=== PATIENT | female | born 1975 | race Two or more races ===

== ENCOUNTER 2017-04-28 15:13 | Observation (INO) | payer SELFPAY ==
[2017-04-28] MEDS ORDERED: NS 1,000 ML IV ONE (16:27)
[2017-04-28] MEDS ORDERED: ONDANSETRON 4 MG/2 ML VIAL IVP ONE (16:27)
[2017-04-28] MEDS ORDERED: KETOROLAC 30 MG/1 ML SDV IVP ONE (16:27)
[2017-04-28] MEDS ORDERED: HYDROmorphONE/DILAUDID 1 MG/ML INJ IVP ONE (16:27)
--- NOTE | 2017-04-28 16:33 | EDPHY ---
H & P Stated Complaint: Abd pain since this morning Time Seen by Provider: 04/28/17 16:04 - Personal History LMP (Females 10-55): IUD In Place Current Tetanus Diphtheria and Acellular Pertussis (TDAP): Unsure - Medical/Surgical History Other PMH: neg by hx - Social History Smoking Status: Never smoked Constitutional: Initial Vital Signs Temperature (C) 36.5 C 04/28/17 15:18 Heart Rate 83 04/28/17 15:18 Respiratory Rate 18 04/28/17 15:18 Blood Pressure 138/69 H 04/28/17 15:18 O2 Sat (%) 92 04/28/17 15:18 O2 Delivery Mode Room Air Allergies/Adverse Reactions: No Known Allergies Allergy (Unverified 04/28/17 15:18) Home Medications: Medication Instructions Recorded NK [No Known Home Meds] 04/28/17 Medical Decision Making - Diagnostics Imaging Results: Imaging Impressions Abdomen Ultrasound 04/28/17 16:29 Impression: 1. Cholelithiasis with multiple gallstones up to 2 cm, gallbladder wall thickening, consistent with acute cholecystitis. 2. Dilated common bile duct at 8 mm. 3. Hepatic steatosis with limited evaluation. Findings and recommendations discussed with Emergency Department physician, Ismael Fatima MD at 17:33 hour, 04/28/2017. Final report concurs with initial preliminary interpretation. Imaging: Discussed imaging studies w/ call center dispatcher Radiologist ED Course/Re-evaluation: CHIEF COMPLAINT: Abdominal pain HISTORY OF PRESENT ILLNESS: The patient is a Mongolian-speaking 41 y/o female arriving with her family complaining of abdominal pain onset around 14:30 this afternoon, about 2 hours ago. Her PCP referred her to the ED for evaluation. The pain was constant and severe for about an sxiz-wbo-s-half, but is now more intermittent and dull and primarily located around her central abdomen. It did not seem to coincide with eating. She's had associated diaphoresis, hyperventilation, and bilateral hand tingling. No recent illness, fever, diarrhea, or other complaints. She has never had this pain previously. She has a history of a prior , but no other abdominal surgeries. Last PO intake this morning. History obtained via per diem interpreter. REVIEW OF SYSTEMS: A 10 point review of systems was performed and is negative with the exception of the elements mentioned in the history of present illness. PHYSICAL EXAM: General Appearance: Alert, well hydrated, appropriate, and non-toxic appearing. Head: Atraumatic without scalp tenderness or obvious injury Eyes: Pupils equal, round, reactive to light and accommodation, EOMI, no trauma , no injection. Nose: Atraumatic, no rhinorrhea, clear. Throat: Mucus membranes moist. Neck: Supple, non-tender, no lymphadenopathy. Respiratory: No retractions, no distress, no wheezes, and no accessory muscle use. Lungs are clear to auscultation bilaterally. Cardiovascular: Regular rate and rhythm, no murmurs, rubs, or gallops. Good capillary refill all extremities. Gastrointestinal: Abdomen is soft, RUQ tenderness with positive Camargo's sign, non-distended, no masses, no rebound, no guarding, no peritoneal signs. Musculoskeletal: Normal active ROM of all extremities, atraumatic. Neurological: Alert, appropriate, and interactive. The patient has non-focal cranial nerves, motor, sensory, and cerebellar exam. Skin: No rashes, good turgor, no nodules on palpation. PAST MEDICAL HISTORY: Denies PAST SURGICAL HISTORY: SOCIAL HISTORY: Mongolian-speaking, family at bedside. DIAGNOSTICS/PROCEDURES/CRITICAL CARE TIME: Abdominal US: acute cholecystitis DIFFERENTIAL DIAGNOSIS: The differential diagnosis for the patient's abdominal pain included but was not limited to ovarian cyst, pelvic inflammatory disease, ovarian torsion, urinary tract infection, ectopic , cholecystitis, and appendicitis. MEDICAL DECISION MAKING: This is a 41 y/o female with no known medical history who presents with a 2- hour history of RUQ pain. She has a positive Camargo's sign and RUQ tenderness on exam, but is generally well-appearing. Plan for IV, labs, abdominal US, and symptom management. 1L IV NS, 30mg IV Toradol, 4mg IV Zofran, and 1mg IV Dilaudid administered. LFTs are elevated. Hepatitis panel added. US shows acute cholecystitis. Consulted with Dr. Marrufo, surgeon. He will assess patient in the ED. - Data Points Laboratory Results: Laboratory Results 04/28/17 16:04 04/28/17 16:04 04/28/17 04/28/17 04/28/17 Unknown 16:04 16:04 WBC RBC Hgb Hct MCV MCH MCHC RDW Plt Count MPV Neut % (Auto) Lymph % (Auto) [place] % (Auto) Eos % (Auto) Baso % (Auto) Nucleat RBC Rel Count Absolute Neuts (auto) Absolute Lymphs (auto) Absolute Monos (auto) Absolute Eos (auto) Absolute Basos (auto) Absolute Nucleated RBC Immature Gran % Immature Gran # Sodium 141 mEq/L mEq/L (134-144) Potassium 4.1 mEq/L mEq/L (3.5-5.2) Chloride 101 mEq/L mEq/L (97-110) Carbon Dioxide 25 mEq/l mEq/l (22-31) Anion Gap 15 mEq/L mEq/L (8-16) BUN 12 mg/dL mg/dL (7-23) Creatinine 0.7 mg/dL mg/dL (0.6-1.0) Estimated GFR > 60 Glucose 144 mg/dL H mg/dL (70-100) Calcium 9.6 mg/dL mg/dL (8.5-10.4) Total Bilirubin 1.1 mg/dL mg/dL (0.1-1.4) Conjugated Bilirubin 0.6 mg/dL H mg/dL (0.0-0.5) Unconjugated Bilirubin 0.5 mg/dL mg/dL (0.0-1.1) AST 300 IU/L H IU/L (14-46) ALT 185 IU/L H IU/L (9-52) Alkaline Phosphatase 94 IU/L IU/L (38-126) Total Protein 7.5 g/dL g/dL (6.3-8.2) Albumin 4.4 g/dL g/dL (3.5-5.0) Lipase 171 IU/L IU/L (23-300) Beta HCG, Qual NEGATIVE Hepatitis A IgM Ab Pending Hep Bs Antigen Pending Hep B Core IgM Ab Pending Hepatitis C Antibody Pending 04/28/17 16:04 WBC 13.72 10^3/uL H 10^3/uL (3.80-9.50) RBC 4.78 10^6/uL 10^6/uL (4.18-5.33) Hgb 15.9 g/dL g/dL (12.6-16.3) Hct 44.9 % % (38.0-47.0) MCV 93.9 fL fL (81.5-99.8) MCH 33.3 pg pg (27.9-34.1) MCHC 35.4 g/dL g/dL (32.4-36.7) RDW 13.0 % % (11.5-15.2) Plt Count 250 10^3/uL 10^3/uL (150-400) MPV 11.0 fL fL (8.7-11.7) Neut % (Auto) 74.7 % H % (39.3-74.2) Lymph % (Auto) 17.9 % % (15.0-45.0) [place] % (Auto) 6.0 % % (4.5-13.0) Eos % (Auto) 0.6 % % (0.6-7.6) Baso % (Auto) 0.4 % % (0.3-1.7) Nucleat RBC Rel Count 0.0 % % (0.0-0.2) Absolute Neuts (auto) 10.26 10^3/uL H 10^3/uL (1.70-6.50) Absolute Lymphs (auto) 2.45 10^3/uL 10^3/uL (1.00-3.00) Absolute Monos (auto) 0.82 10^3/uL H 10^3/uL (0.30-0.80) Absolute Eos (auto) 0.08 10^3/uL 10^3/uL (0.03-0.40) Absolute Basos (auto) 0.05 10^3/uL 10^3/uL (0.02-0.10) Absolute Nucleated RBC 0.00 10^3/uL 10^3/uL (0-0.01) Immature Gran % 0.4 % % (0.0-1.1) Immature Gran # 0.06 10^3/uL 10^3/uL (0.00-0.10) Sodium Potassium Chloride Carbon Dioxide Anion Gap BUN Creatinine Estimated GFR Glucose Calcium Total Bilirubin Conjugated Bilirubin Unconjugated Bilirubin AST ALT Alkaline Phosphatase Total Protein Albumin Lipase Beta HCG, Qual Hepatitis A IgM Ab Hep Bs Antigen Hep B Core IgM Ab Hepatitis C Antibody Medications Given: Discontinued Medications Hydromorphone HCl (Dilaudid) 1 mg IVP EDNOW ONE Stop: 04/28/17 16:28 Last Admin: 04/28/17 16:36 Dose: 1 mg Sodium Chloride (Ns) 1,000 mls @ 0 mls/hr IV EDNOW ONE; Wide Open PRN Reason: Protocol Stop: 04/28/17 16:28 Last Admin: 04/28/17 16:37 Dose: 1,000 mls Ketorolac Tromethamine (Toradol) 30 mg IVP EDNOW ONE Stop: 04/28/17 16:28 Last Admin: 04/28/17 16:38 Dose: 30 mg Ondansetron HCl (Zofran) 4 mg IVP EDNOW ONE Stop: 04/28/17 16:28 Last Admin: 04/28/17 16:37 Dose: 4 mg Departure - Departure Disposition: [facility] Acute Clinical Impression: Acute cholecystitis Condition: Fair
[2017-04-28 16:37] LABS: % IMMATURE GRANULYOCYTES 0.4 % (0.0-1.1); ABSOLUTE IMMATURE GRANULOCYTES 0.06 10^3/uL (0.00-0.10); ADD DIFF? NO; ADD MORPH? NO; ADD SCAN? NO; ATYPICAL LYMPHOCYTE FLAG 0 (0-99); FRAGMENT RBC FLAG 0 (0-99); HEMATOCRIT 44.9 % (38.0-47.0); HEMOGLOBIN 15.9 g/dL (12.6-16.3); LEFT SHIFT FLG 0 (0-99); LIPEMIA HEMOLYSIS FLAG 90 (0-99); MEAN CELL HEMOGLOBIN 33.3 pg (27.9-34.1); MEAN CELL HEMOGLOBIN CONCENTR. 35.4 g/dL (32.4-36.7); MEAN CELL VOLUME 93.9 fL (81.5-99.8); PLATELET CLUMPS FLAG 0 (0-99); PLATELET COUNT 250 10^3/uL (150-400); RED BLOOD CELL COUNT 4.78 10^6/uL (4.18-5.33)
[2017-04-28 16:48] LABS: ALANINE AMINOTRANSFERASE 185 IU/L (9-52); ALBUMIN 4.4 g/dL (3.5-5.0); ALKALINE PHOSPHATASE 94 IU/L (38-126); ANION GAP 15 mEq/L (8-16); ASPARTATE AMINOTRANSFERASE 300 IU/L (14-46); BILIRUBIN,TOTAL 1.1 mg/dL (0.1-1.4); BILIRUBIN-CONJUGATED 0.6 mg/dL (0.0-0.5); BILIRUBIN-UNCONJUGATED 0.5 mg/dL (0.0-1.1); CALCIUM 9.6 mg/dL (8.5-10.4); CARBON DIOXIDE 25 mEq/l (22-31); CHLORIDE 101 mEq/L (97-110); CREATININE 0.7 mg/dL (0.6-1.0); GLOMERULAR FILTRATION RATE > 60; GLUCOSE 144 mg/dL (70-100); POTASSIUM 4.1 mEq/L (3.5-5.2); SODIUM 141 mEq/L (134-144); TOTAL PROTEIN 7.5 g/dL (6.3-8.2)
[2017-04-28] MEDS ORDERED: ERTAPENEM 1 GM in NS 100 ML IV ONE (17:31)
[2017-04-28] MEDS ORDERED: HYDROmorphONE/DILAUDID 1 MG/ML INJ IVP PRN ×2 (18:11→21:51)
--- NOTE | 2017-04-28 18:11 | PDGENHP ---
History and Physical - Chief Complaint RUQ and epigastric pain - History of Present Illness otherwise healthy 41yo F presents with acute onset epigastric and RUQ pain. States that she awoke this AM, felt well. Around noon began to have excruciating epigsatric pain with radiation to the RUQ which has been unrelenting. The pain is 8/10. There is no nausea and no vomiting. She had an episode of this when she was 11 years ago with her son. She was treated medically at that time and it resolved and she has had no issues over the ensuing 11yrs until today History Information - Allergies/Home Medication List Allergies/Adverse Reactions: No Known Allergies Allergy (Unverified 04/28/17 15:18) Home Medications: NK [No Known Home Meds] 04/28/17 [Last Taken Unknown] I have personally reviewed and updated: family history, medical history, social history, surgical history - Past Medical History no pertinent PMH - Surgical History Additional surgical history: c-sxn x1 - Family History Positive for: non-pertinent - Social History Smoking Status: Never smoked Alcohol Use: Occasionally Review of Systems Review of Systems: ROS: 10pt was reviewed & negative except for what was stated in HPI & below Physical Exam Physical Exam: Temp Pulse Resp BP Pulse Ox 36.5 C 83 18 138/69 H 92 04/28/17 15:18 04/28/17 15:18 04/28/17 15:18 04/28/17 15:18 04/28/17 15:18 Constitutional: no apparent distress, appears nourished, not in pain Eyes: PERRL, anicteric sclera, EOMI Ears, Nose, Mouth, Throat: moist mucous membranes, hearing normal, ears appear normal, no oral mucosal ulcers Cardiovascular: regular rate and rhythym, no murmur, rub, or gallop, No edema Respiratory: no respiratory distress, no rales or rhonchi, clear to auscultation Gastrointestinal: normoactive bowel sounds, other (Obese, TTP in the RUQ and epigstrium, positive murphys sign ) Genitourinary: no bladder fullness, no bladder tenderness Skin: warm, normal color, no rashes or abrasions, no fluctuance, no induration, No mottled Musculoskeletal: full muscle strength, no muscle tenderness, normal joint ROM, no joint effusions Psychiatric: interacting appropriately, not anxious, not encephalopathic, thought process linear Lymph, Heme, Immunologic: no cervical LAD, no supraclavicular LAD Lab Data & Imaging Review 04/28/17 16:04 04/28/17 16:04 WBC 13.72 10^3/uL (3.80-9.50) H 04/28/17 16:04 RBC 4.78 10^6/uL (4.18-5.33) 04/28/17 16:04 Hgb 15.9 g/dL (12.6-16.3) 04/28/17 16:04 Hct 44.9 % (38.0-47.0) 04/28/17 16:04 MCV 93.9 fL (81.5-99.8) 04/28/17 16:04 MCH 33.3 pg (27.9-34.1) 04/28/17 16:04 MCHC 35.4 g/dL (32.4-36.7) 04/28/17 16:04 RDW 13.0 % (11.5-15.2) 04/28/17 16:04 Plt Count 250 10^3/uL (150-400) 04/28/17 16:04 MPV 11.0 fL (8.7-11.7) 04/28/17 16:04 Neut % (Auto) 74.7 % (39.3-74.2) H 04/28/17 16:04 Lymph % (Auto) 17.9 % (15.0-45.0) 04/28/17 16:04 [place] % (Auto) 6.0 % (4.5-13.0) 04/28/17 16:04 Eos % (Auto) 0.6 % (0.6-7.6) 04/28/17 16:04 Baso % (Auto) 0.4 % (0.3-1.7) 04/28/17 16:04 Nucleat RBC Rel Count 0.0 % (0.0-0.2) 04/28/17 16:04 Absolute Neuts (auto) 10.26 10^3/uL (1.70-6.50) H 04/28/17 16:04 Absolute Lymphs (auto) 2.45 10^3/uL (1.00-3.00) 04/28/17 16:04 Absolute Monos (auto) 0.82 10^3/uL (0.30-0.80) H 04/28/17 16:04 Absolute Eos (auto) 0.08 10^3/uL (0.03-0.40) 04/28/17 16:04 Absolute Basos (auto) 0.05 10^3/uL (0.02-0.10) 04/28/17 16:04 Absolute Nucleated RBC 0.00 10^3/uL (0-0.01) 04/28/17 16:04 Immature Gran % 0.4 % (0.0-1.1) 04/28/17 16:04 Immature Gran # 0.06 10^3/uL (0.00-0.10) 04/28/17 16:04 Sodium 141 mEq/L (134-144) 04/28/17 16:04 Potassium 4.1 mEq/L (3.5-5.2) 04/28/17 16:04 Chloride 101 mEq/L (97-110) 04/28/17 16:04 Carbon Dioxide 25 mEq/l (22-31) 04/28/17 16:04 Anion Gap 15 mEq/L (8-16) 04/28/17 16:04 BUN 12 mg/dL (7-23) 04/28/17 16:04 Creatinine 0.7 mg/dL (0.6-1.0) 04/28/17 16:04 Estimated GFR > 60 04/28/17 16:04 Glucose 144 mg/dL (70-100) H 04/28/17 16:04 Calcium 9.6 mg/dL (8.5-10.4) 04/28/17 16:04 Total Bilirubin 1.1 mg/dL (0.1-1.4) 04/28/17 16:04 Conjugated Bilirubin 0.6 mg/dL (0.0-0.5) H 04/28/17 16:04 Unconjugated Bilirubin 0.5 mg/dL (0.0-1.1) 04/28/17 16:04 AST 300 IU/L (14-46) H 04/28/17 16:04 ALT 185 IU/L (9-52) H 04/28/17 16:04 Alkaline Phosphatase 94 IU/L (38-126) 04/28/17 16:04 Total Protein 7.5 g/dL (6.3-8.2) 04/28/17 16:04 Albumin 4.4 g/dL (3.5-5.0) 04/28/17 16:04 Lipase 171 IU/L (23-300) 04/28/17 16:04 Beta HCG, Qual NEGATIVE 04/28/17 16:04 Visualized and Interpreted imaging results: Yes Interpretation: US: stones, GBW thickening, -PCF, borderline enlarged CBD. Assessment & Plan Assessment: Acute cholecystitis (Acute) Plan: 41yo F with cholecystitis. - Discussed that this episode is unlikely to resolve with medications. Recommended lap corey with grams. RBA discussed. To OR as time permits. Clinical Nursing Professor used at bedside for complete H&P as well as consent.
[2017-04-28] MEDS ORDERED: BUPIVACAINE 0.25% 30 ML SDV ONE (18:30)
[2017-04-28] MEDS ORDERED: IOPAMIDOL (ISOVUE-M 300) 15 ML VIAL ONE ×2 (18:42→18:46)
[2017-04-28] MEDS ORDERED: IOPAMIDOL (ISOVUE-300) 150 ML BTL ONE (18:42)
[2017-04-28] MEDS ORDERED: PROPOFOL 200 MG/20 ML VIAL ONE (21:29)
[2017-04-28] MEDS ORDERED: ROCURONIUM 50 MG/5 ML VIAL ONE (21:29)
[2017-04-28] MEDS ORDERED: fentaNYL 100 MCG/2 ML INJ ONE ×3 (21:29→23:07)
[2017-04-28] MEDS ORDERED: LIDOCAINE 2% 5 ML SDV ONE (21:29)
[2017-04-28] MEDS ORDERED: ONDANSETRON 4 MG/2 ML VIAL ONE (21:30)
[2017-04-28] MEDS ORDERED: DEXAMETHASONE 4 MG/ML VIAL ONE (21:30)
--- NOTE | 2017-04-28 21:31 | PDANEPAE ---
ANE History of Present Illness acute cholecystitis ANE Past Medical History - Pulmonary History Hx Oxygen in Use at Home: No Hx Sleep Apnea: No - Endocrine History Hx Diabetes: No ANE Review of Systems Review of Systems: ANE Patient History - Allergies Allergies/Adverse Reactions: No Known Allergies Allergy (Unverified 04/28/17 15:18) - Home Medications Home Medications: NK [No Known Home Meds] 04/28/17 [Last Taken Unknown] - NPO status NPO Since - Liquids (Date): 04/28/17 NPO Since - Liquids (Time): 08:00 NPO Since - Solids (Date): 04/28/17 NPO Since - Solids (Time): 08:00 - Smoking Hx Smoking Status: Never smoked - Alcohol Use Alcohol Use: Occasionally ANE Labs/Vital Signs - Labs Result Diagrams: 04/28/17 16:04 04/28/17 16:04 - Vital Signs Blood Pressure: 151/87 Heart Rate: 71 Respiratory Rate: 14 O2 Sat (%): 95 Height: 165.1 cm Weight: 84.368 kg ANE Physical Exam - Airway Neck exam: FROM Mallampati Score: Class 2 Mouth exam: normal dental/mouth exam - Pulmonary Pulmonary: no respiratory distress - Cardiovascular Cardiovascular: regular rate and rhythym - ASA Status ASA Status: II ANE Anesthesia Plan Anesthesia Plan: general endotracheal anesthesia
[2017-04-28] MEDS ORDERED: ONDANSETRON 4 MG/2 ML VIAL IVP PRN ×2 (21:51→23:36)
[2017-04-28] MEDS ORDERED: OXYCODONE/APAP 5/325 TAB PO PRN (21:51)
[2017-04-28] MEDS ORDERED: NALOXONE HCL 0.4 MG/ML INJ IVP PRN (21:51)
[2017-04-28] MEDS ORDERED: PROMETHAZINE HCL 25 MG/ML INJ IVP PRN (21:51)
[2017-04-28] MEDS ORDERED: MEPERIDINE 25 MG/ML SYR IVP PRN (21:51)
--- NOTE | 2017-04-28 22:53 | POSTANESTH ---
Post Anesthetic Evaluation Cardiovascular Status: Normal, Stable Respiratory Status: Normal, Stable Level of Consciousness/Mental Status: Can Participate in Eval Pain Control: Adequate, Prn Tx Ordered Nausea/Vomiting Control: Adequate, Prn Tx Ordered Complications Possibly Related to Anesthesia: None Noted
[2017-04-28] MEDS: fentaNYL 100 MCG/2 ML INJ IVP PRN ×2 (23:12→23:18)
--- NOTE | 2017-04-28 23:36 | POSTOPPROG ---
Post Op Note Date of Operation: 04/28/17 Surgeon: Kenny Marrufo Anesthesiologist: Josué Anesthesia: GET(General Endotracheal) Pre-op Diagnosis: Cholecystitis Post-op Diagnosis: same Procedure: Lap corey with IOC Findings: acute corey, critical view. IOC: no filling defect Inf/Abcess present in the surg proc area at time of surgery?: No EBL: Minimal Specimen(s): GB
[2017-04-28] MEDS ORDERED: D5W 1/2 NS W/ 20 KCl/L 1,000 ML IV SCH (23:45)
[2017-04-29] MEDS: ONDANSETRON 4 MG/2 ML VIAL IVP PRN ×2 (00:13→07:54)
[2017-04-29] MEDS: HYDROmorphone HCL/NS/PF 0.4 MG/2 ML SYR IVP PRN ×2 (00:13→04:37)
[2017-04-29] MEDS: IBUPROFEN 600 MG TAB PO SCH ×3 (05:48→22:34)
--- NOTE | 2017-04-29 06:31 | GOP ---
[f rep st] OPERATIVE REPORT DATE OF OPERATION: 04/28/2017 SURGEON: Kenny Marrufo MD LICENSED OCCUPATIONAL THERAPY ASSISTANT: None. ANESTHESIA: General endotracheal. ANESTHESIOLOGIST: Kim Moses MD. PREOPERATIVE DIAGNOSIS: Acute cholecystitis. POSTOPERATIVE DIAGNOSIS: Acute cholecystitis. PROCEDURE PERFORMED: Laparoscopic cholecystectomy with intraoperative cholangiogram. FINDINGS: Multiple adhesions to the gallbladder wall with an edematous gallbladder wall. Critical v iew was subsequently obtained. Intraoperative cholangiogram was performed, which showed good opacifi cation of the entire biliary tree with good spillage of contrast into the duodenum without filling de fect. SPECIMENS: Gallbladder. ESTIMATED BLOOD LOSS: 5 cc. DESCRIPTION OF PROCEDURE: The patient was greeted in the preoperative suite. Once again, risks, ventura efits, and alternatives were discussed. Consent was signed. She was then brought back to the operat robert suite, placed on the OR table in the supine position. After all anesthesia machines, including S CDs, were on and functioning, World Health Organization time-out was performed ending with all in agr eement. After successful induction of general anesthesia, the patient's abdomen was prepped and drap ed in typical sterile fashion. After successful prepping, I entered the abdomen via an infraumbilica l cutdown through which I passed a Veress needle and achieved pneumoperitoneum to 15 mmHg CO2. Throu gh this, I passed the 10 mm Visiport. Once successfully in the abdomen, I placed 3 additional 5 mm p orts, 1 in the subxiphoid, 2 in the right upper quadrant, all under direct visualization. I grasped the gallbladder and successfully retracted it over the liver edge. Once this was done, I grasped the infundibulum, took down multiple omental adhesions. I dissected out the infundibulum and identified 2 and only 2 structures leading toward the gallbladder. I then performed an intraoperative cholangi ogram, which showed brisk opacification of all biliary radicles with spillage of contrast into the du odenum without skylar filling defect. I then clipped the duct. I did put an 0 PDS Endoloop on the du ct, as it was somewhat enlarged and divided it. The same was done with the artery. I then took the gallbladder off the liver bed, placed in an EndoCatch bag and removed it. Hemostasis was achieved in the liver bed with electrocautery. The right upper quadrant was then irrigated with 1 L normal sali ne noting clear effluent in the suction canister. I then closed the infraumbilical port using the Ginette lynchThomasmaria ines fascial closure device noting excellent fascial closure. I then evacuated my pneumoper itoneum. The skin was closed with running 4-0 Monocryl over which Dermabond was placed. The patient was then extubated in the operative suite and taken to PACU in satisfactory condition. DRAINS: None. COUNTS: All counts were reported as correct x2. /[id number]/MODL
--- NOTE | 2017-04-29 09:05 | SOAPPROG ---
SOAP Progress Note Assessment/Plan: Assessment/Plan: 41 Y F s/p lap corey. +emesis this am. Antiemetics PRN. Pain controlled. Seen c Dr. Marrufo. Dispo: possibly home later today of no N/V. more likely d/c to home tomorrow. S: felt a build up of gas and then vomited. O: alert, nad ctab rrr abd sift, inc cdi, rare BS 04/29/17 09:04 Objective: Vital Signs Temp Pulse Resp BP Pulse Ox 36.8 C 55 L 17 124/73 H 95 04/29/17 08:13 04/29/17 08:13 04/29/17 08:13 04/29/17 08:13 04/29/17 08:13 04/28/17 04/29/17 04/30/17 05:59 05:59 05:59 Intake Total 1384 Output Total 400 Balance 984 ICD10 Worksheet Patient Problems: Problems Problem Status Onset Acute cholecystitis Acute
[2017-04-29] MEDS ORDERED: FLU VACC QS 2017-18 (3YR+)/PF 0.5 ML SYR (FLUARIX QUAD) IM ONE (11:10)
[2017-04-29] MEDS: HYDROCODONE/APAP 5/325 TAB PO PRN (11:27)
--- NOTE | 2017-04-29 14:29 | ASMTCMCOM ---
CM Note CM Note Notes: 04/29/2017 Case Management Note Reviewed chart. There are no PT or OT evals ordered. No case management d/c needs identified d/t pt age, marital status and activity levels prior to admission. Case Management d/c poc: Home independent when medically stable with follow up as directed. Date Signed: 04/29/2017 02:28 PM Electronically Signed By:Lulú Neely RN
[2017-04-29] MEDS: SIMETHICONE 80 MG TAB CHEW PO SCH ×2 (16:53→22:34)
[2017-04-29] MEDS ORDERED: D5W 1/2 NS W/ 20 KCl/L 1,000 ML IV SCH (17:00)
[2017-04-29 20:01] VITALS: RESP 16
[2017-04-30 03:49] VITALS: BP 101/65; PULSE 66; TEMP 98.3; O2SAT 90
[2017-04-30] MEDS: IBUPROFEN 600 MG TAB PO SCH (05:27)
[2017-04-30] MEDS: HYDROCODONE/APAP 5/325 TAB PO PRN (06:31)
[2017-04-30] MEDS: SIMETHICONE 80 MG TAB CHEW PO SCH (09:20)
== END 2017-04-30 11:11 | disposition home or self-care (01) ==
LOC: F1N 18:27
PROVIDERS: ADMIT Surgery; ATTEND Surgery
PROC: 0FT44ZZ Resection of Gallbladder, Percutaneous Endoscopic Approach (ICD-10-PCS; principal; 2017-04-28 20:15)
DX: K81.0 Acute cholecystitis (principal)
CPT/HCPCS: G0008; G0378; G0472; J0171; J1100; J1170; J1335; J1885; J2405; J2704; J3010; Q9967

== ENCOUNTER 2017-05-01 21:42 | Inpatient (IN) | payer SELFPAY ==
[2017-05-01] MEDS ORDERED: NS 1,000 ML IV ONE (22:11)
[2017-05-01] MEDS ORDERED: FAMOTIDINE 20 MG/NACL 50 ML IV ONE (22:11)
[2017-05-01] MEDS ORDERED: HYDROmorphONE/DILAUDID 1 MG/ML INJ IVP ONE (22:11)
[2017-05-01 22:17] LABS: % IMMATURE GRANULYOCYTES 0.3 % (0.0-1.1); ABSOLUTE IMMATURE GRANULOCYTES 0.03 10^3/uL (0.00-0.10); ADD DIFF? NO; ADD MORPH? NO; ADD SCAN? NO; ATYPICAL LYMPHOCYTE FLAG 0 (0-99); FRAGMENT RBC FLAG 0 (0-99); HEMATOCRIT 42.8 % (38.0-47.0); HEMOGLOBIN 15.6 g/dL (12.6-16.3); LEFT SHIFT FLG 0 (0-99); LIPEMIA HEMOLYSIS FLAG 90 (0-99); MEAN CELL HEMOGLOBIN 32.8 pg (27.9-34.1); MEAN CELL HEMOGLOBIN CONCENTR. 36.4 g/dL (32.4-36.7); MEAN CELL VOLUME 89.9 fL (81.5-99.8); MEAN PLATELET VOLUME 10.9 fL (8.7-11.7); PLATELET CLUMPS FLAG 0 (0-99); PLATELET COUNT 217 10^3/uL (150-400); RED BLOOD CELL COUNT 4.76 10^6/uL (4.18-5.33); RED CELL DISTRIBUTION WIDTH 13.2 % (11.5-15.2)
--- NOTE | 2017-05-01 22:17 | EDPHY ---
H & P Stated Complaint: abd pain, sx on monday Time Seen by Provider: 05/01/17 22:00 HPI/ROS: HPI The patient, who is postop day 3. From laparoscopic cholecystectomy, discharged from the hospital yesterday afternoon, presents with diffuse abdominal pain since about 7:00 p.m. tonight. The pain started slowly, is throughout her entire abdomen, feels like a pressure sensation and also sharp in nature. It is severe, and radiates toward her back. She feels short of breath because of the pain. She has been taking ibuprofen 600 mg every 8 hours, last dose at 5: 00 p.m. tonight. At 8:00 p.m. tonight she took [place] 2 tabs for the 1st time since she has been home for pain. She did not have any improvement in her symptoms, thus presented to the emergency department. She last ate at about 7: 00 p.m. tonight, clear liquids, without difficulty. She had 2 bowel movements today which were normal. She had a similar pain at about 11:00 p.m. last night but it resolved on its own. She has not had any fever or vomiting. REVIEW OF SYSTEMS Constitutional: No fever, no chills. Eyes: No discharge. ENT: No sore throat. Cardiovascular: No chest pain, no palpitations. Respiratory: No cough, no shortness of breath. Gastrointestinal: See HPI Genitourinary: No hematuria. Musculoskeletal: No back pain. Skin: No rashes. Neurological: No headache. PMHx: Postop day 3. From laparoscopic cholecystectomy for cholecystitis Soc Hx: Lives at home with her PHYSICAL General Appearance: Alert, tearful at times Eyes: Pupils equal and round no pallor or injection ENT, Mouth: Mucous membranes moist Respiratory: There are no retractions, lungs are clear to auscultation Cardiovascular: Regular rate and rhythm Gastrointestinal: Abdomen is soft, 3 laparoscopic incisions without any surrounding erythema, edema, warmth, there is tenderness throughout all quadrants without any rebound or guarding Neurological: A&O, moves all extremities Skin: Warm and dry, no rashes Musculoskeletal: Neck is supple non tender Extremities: symmetrical, full range of motion Psychiatric: Patient is oriented X 3, there is no agitation Source: Patient Exam Limitations: No limitations - Personal History LMP (Females 10-55): IUD In Place Current Tetanus/Diphtheria Vaccine: Unsure - Medical/Surgical History Hx Asthma: No Hx Chronic Respiratory Disease: No Hx Diabetes: No Hx Cardiac Disease: No Hx Renal Disease: No Hx Cirrhosis: No Hx Alcoholism: No Hx HIV/AIDS: No Hx Splenectomy or Spleen Trauma: No Other PMH: neg by hx. gallbladder removed 04/28 - Social History Smoking Status: Never smoked Constitutional: Initial Vital Signs Temperature (C) 36.8 C 05/01/17 21:44 Heart Rate 63 05/01/17 21:44 Respiratory Rate 20 05/01/17 21:44 O2 Sat (%) 94 05/01/17 21:44 O2 Delivery Mode Nasal Cannula O2 (L/minute) 3 Allergies/Adverse Reactions: No Known Allergies Allergy (Verified 05/01/17 21:50) Home Medications: Medication Instructions Recorded Hydrocodone/APAP 5/325 [[place] 1 - 2 tab PO Q4HRS PRN #30 tab 04/30/17 5/325 (*)] Ibuprofen [Motrin (*)] 600 mg PO Q8HRS #40 tab 04/30/17 Medical Decision Making - Diagnostics Imaging Results: Imaging Impressions Abdomen Ultrasound 05/01/17 22:12 Impression: 1. Status post cholecystectomy with no biliary ductal dilatation identified. 2. Increased hepatic echogenicity suggests steatosis. Results called and discussed with Jinny Adams MD on 05/01/2017 at 23:19 Imaging: Discussed imaging studies w/ culture manager Radiologist Differential Diagnosis: This is a 41-year-old female, postop day 3. From laparoscopic cholecystectomy who presents with diffuse abdominal pain. On exam, she has normal vital signs, is uncomfortable appearing with diffuse abdominal tenderness without any rebound or guarding. Differential diagnosis includes choledocholithiasis, bile leak, postoperative bleeding or infection. In the emergency department, labs were checked which revealed an elevated bilirubin level as well as transaminitis. The patient was given a dose of Dilaudid and on reassessment had complete resolution of her pain. Ultrasound of the right upper quadrant is actually quite unremarkable with normal- appearing CBD. I consulted with Dr. KALEB Ferguson on-call for Dr. Kenny Marrufo, who recommends Invanz, HIDA or MRCP/ERCP, GI consult. I have consulted with the hospitalist Dr. Wright who will admit the patient. I have updated the patient and her family using the steam shovel operator. - Data Points Laboratory Results: Laboratory Results 05/01/17 22:11 05/01/17 22:11 05/01/17 05/01/17 22:11 22:11 WBC 9.01 10^3/uL 10^3/uL (3.80-9.50) RBC 4.76 10^6/uL 10^6/uL (4.18-5.33) Hgb 15.6 g/dL g/dL (12.6-16.3) Hct 42.8 % % (38.0-47.0) MCV 89.9 fL fL (81.5-99.8) MCH 32.8 pg pg (27.9-34.1) MCHC 36.4 g/dL g/dL (32.4-36.7) RDW 13.2 % % (11.5-15.2) Plt Count 217 10^3/uL 10^3/uL (150-400) MPV 10.9 fL fL (8.7-11.7) Neut % (Auto) 62.5 % % (39.3-74.2) Lymph % (Auto) 28.5 % % (15.0-45.0) [place] % (Auto) 6.8 % % (4.5-13.0) Eos % (Auto) 1.1 % % (0.6-7.6) Baso % (Auto) 0.8 % % (0.3-1.7) Nucleat RBC Rel Count 0.0 % % (0.0-0.2) Absolute Neuts (auto) 5.63 10^3/uL 10^3/uL (1.70-6.50) Absolute Lymphs (auto) 2.57 10^3/uL 10^3/uL (1.00-3.00) Absolute Monos (auto) 0.61 10^3/uL 10^3/uL (0.30-0.80) Absolute Eos (auto) 0.10 10^3/uL 10^3/uL (0.03-0.40) Absolute Basos (auto) 0.07 10^3/uL 10^3/uL (0.02-0.10) Absolute Nucleated RBC 0.00 10^3/uL 10^3/uL (0-0.01) Immature Gran % 0.3 % % (0.0-1.1) Immature Gran # 0.03 10^3/uL 10^3/uL (0.00-0.10) Sodium 140 mEq/L mEq/L (134-144) Potassium 3.4 mEq/L L mEq/L (3.5-5.2) Chloride 101 mEq/L mEq/L (97-110) Carbon Dioxide 24 mEq/l mEq/l (22-31) Anion Gap 15 mEq/L mEq/L (8-16) BUN 10 mg/dL mg/dL (7-23) Creatinine 0.7 mg/dL mg/dL (0.6-1.0) Estimated GFR > 60 Glucose 142 mg/dL H mg/dL (70-100) Calcium 9.4 mg/dL mg/dL (8.5-10.4) Total Bilirubin 7.2 mg/dL H mg/dL (0.1-1.4) Conjugated Bilirubin 5.4 mg/dL H mg/dL (0.0-0.5) Unconjugated Bilirubin 1.8 mg/dL H mg/dL (0.0-1.1) AST 280 IU/L H IU/L (14-46) ALT 881 IU/L H IU/L (9-52) Alkaline Phosphatase 202 IU/L H IU/L (38-126) Total Protein 7.6 g/dL g/dL (6.3-8.2) Albumin 4.2 g/dL g/dL (3.5-5.0) Lipase 71 IU/L IU/L (23-300) Medications Given: Ondansetron HCl (Zofran) 4 mg IVP Q4HRS PRN PRN Reason: Nausea/Vomiting, Can't Take PO Stop: 10/29/17 00:09 Last Admin: 05/02/17 01:24 Dose: 4 mg Discontinued Medications Hydromorphone HCl (Dilaudid) 0.5 mg IVP EDNOW ONE Stop: 05/01/17 22:12 Last Admin: 05/01/17 22:32 Dose: 0.5 mg Sodium Chloride (Ns) 1,000 mls @ 0 mls/hr IV EDNOW ONE; Wide Open PRN Reason: Protocol Stop: 05/01/17 22:12 Last Admin: 05/01/17 22:32 Dose: 1,000 mls Famotidine/Sodium Chloride (Pepcid 20 Mg (Premix)) 50 mls @ 200 mls/hr IV EDNOW ONE Stop: 05/01/17 22:25 Last Admin: 05/01/17 22:32 Dose: 50 mls Ertapenem 1 gm/ Sodium (Chloride) 100 mls @ 200 mls/hr IV EDNOW ONE PRN Reason: Protocol Stop: 05/02/17 00:10 Last Admin: 05/02/17 00:26 Dose: 100 mls Departure - Departure Disposition: [facility] Inpatient Acute Clinical Impression: Status post cholecystectomy, Elevated liver enzymes Abdominal pain Qualifiers: Abdominal location: generalized Qualified Code(s): R10.84 - Generalized abdominal pain Condition: Fair
[2017-05-01 22:32] LABS: ALANINE AMINOTRANSFERASE 881 IU/L (9-52); ALBUMIN 4.2 g/dL (3.5-5.0); ALKALINE PHOSPHATASE 202 IU/L (38-126); ANION GAP 15 mEq/L (8-16); ASPARTATE AMINOTRANSFERASE 280 IU/L (14-46); BILIRUBIN,TOTAL 7.2 mg/dL (0.1-1.4); BILIRUBIN-CONJUGATED 5.4 mg/dL (0.0-0.5); BILIRUBIN-UNCONJUGATED 1.8 mg/dL (0.0-1.1); CALCIUM 9.4 mg/dL (8.5-10.4); CARBON DIOXIDE 24 mEq/l (22-31); CHLORIDE 101 mEq/L (97-110); CREATININE 0.7 mg/dL (0.6-1.0); GLOMERULAR FILTRATION RATE > 60; GLUCOSE 142 mg/dL (70-100); POTASSIUM 3.4 mEq/L (3.5-5.2); SODIUM 140 mEq/L (134-144); TOTAL PROTEIN 7.6 g/dL (6.3-8.2)
[2017-05-01] MEDS ORDERED: ERTAPENEM 1 GM in NS 100 ML IV ONE (23:41)
[2017-05-02] MEDS ORDERED: oxyCODONE IR 5 MG TAB PO PRN (00:10)
[2017-05-02] MEDS ORDERED: ONDANSETRON DISINTEGRATING 4 MG TAB PO PRN (00:10)
--- NOTE | 2017-05-02 00:55 | PDGENHP ---
History and Physical - Chief Complaint Abdominal pain - History of Present Illness 41 yo F s/p cholecystecomy on 04/28 for acute cholecystitis presents with abdominal pain. She presented with acute cholecystitis last Monday and had an uncomplicated laparoscopic cholecystectomy. She was doing well at home until the day of admission when she began to feel abdominal pain that she describes as similar to her gallstone pain. The pain was fairly diffuse over her whole abdomen so she decided to come back in to the hospital. Upon arrival in the ED she was noted to have LFTs consistent with cholestasis and inflammation. Dr. Rickie Ferguson was contacted who recommended Ertapenem and admission to medicine service for GI consult and likely ERCP. History Information - Allergies/Home Medication List Allergies/Adverse Reactions: No Known Allergies Allergy (Verified 05/01/17 21:50) I have personally reviewed and updated: family history, medical history - Past Medical History no pertinent PMH - Surgical History Additional surgical history: c-sxn x1 - Family History Positive for: non-pertinent Additional family history: Brother had gallstones - Social History Smoking Status: Never smoked Review of Systems Review of Systems: ROS: 10pt was reviewed & negative except for what was stated in HPI & below Physical Exam Physical Exam: Temp Pulse Resp BP Pulse Ox 36.8 C 58 L 20 116/60 95 05/01/17 21:44 05/02/17 00:28 05/02/17 00:28 05/02/17 00:28 05/02/17 00:28 O2 (L/minute) 2 Constitutional: no apparent distress, appears nourished Eyes: PERRL, EOMI Ears, Nose, Mouth, Throat: moist mucous membranes, no oral mucosal ulcers Cardiovascular: regular rate and rhythym, no murmur, rub, or gallop Respiratory: no respiratory distress, clear to auscultation Gastrointestinal: normoactive bowel sounds, skinner's sign (Mildly positive) Skin: warm, other (3 small laparoscopic incisions healing well without signs of infection) Musculoskeletal: full muscle strength, no muscle tenderness Neurologic: AAOx3, CN II-XII Intact Psychiatric: interacting appropriately, not anxious Lab Data & Imaging Review 05/01/17 22:11 05/01/17 22:11 WBC 9.01 10^3/uL (3.80-9.50) 05/01/17 22:11 RBC 4.76 10^6/uL (4.18-5.33) 05/01/17 22:11 Hgb 15.6 g/dL (12.6-16.3) 05/01/17 22:11 Hct 42.8 % (38.0-47.0) 05/01/17 22:11 MCV 89.9 fL (81.5-99.8) 05/01/17 22:11 MCH 32.8 pg (27.9-34.1) 05/01/17 22:11 MCHC 36.4 g/dL (32.4-36.7) 05/01/17 22:11 RDW 13.2 % (11.5-15.2) 05/01/17 22:11 Plt Count 217 10^3/uL (150-400) 05/01/17 22:11 MPV 10.9 fL (8.7-11.7) 05/01/17 22:11 Neut % (Auto) 62.5 % (39.3-74.2) 05/01/17 22:11 Lymph % (Auto) 28.5 % (15.0-45.0) 05/01/17 22:11 [place] % (Auto) 6.8 % (4.5-13.0) 05/01/17 22:11 Eos % (Auto) 1.1 % (0.6-7.6) 05/01/17 22:11 Baso % (Auto) 0.8 % (0.3-1.7) 05/01/17 22:11 Nucleat RBC Rel Count 0.0 % (0.0-0.2) 05/01/17 22:11 Absolute Neuts (auto) 5.63 10^3/uL (1.70-6.50) 05/01/17 22:11 Absolute Lymphs (auto) 2.57 10^3/uL (1.00-3.00) 05/01/17 22:11 Absolute Monos (auto) 0.61 10^3/uL (0.30-0.80) 05/01/17 22:11 Absolute Eos (auto) 0.10 10^3/uL (0.03-0.40) 05/01/17 22:11 Absolute Basos (auto) 0.07 10^3/uL (0.02-0.10) 05/01/17 22:11 Absolute Nucleated RBC 0.00 10^3/uL (0-0.01) 05/01/17 22:11 Immature Gran % 0.3 % (0.0-1.1) 05/01/17 22:11 Immature Gran # 0.03 10^3/uL (0.00-0.10) 05/01/17 22:11 Sodium 140 mEq/L (134-144) 05/01/17 22:11 Potassium 3.4 mEq/L (3.5-5.2) L 05/01/17 22:11 Chloride 101 mEq/L (97-110) 05/01/17 22:11 Carbon Dioxide 24 mEq/l (22-31) 05/01/17 22:11 Anion Gap 15 mEq/L (8-16) 05/01/17 22:11 BUN 10 mg/dL (7-23) 05/01/17 22:11 Creatinine 0.7 mg/dL (0.6-1.0) 05/01/17 22:11 Estimated GFR > 60 05/01/17 22:11 Glucose 142 mg/dL (70-100) H 05/01/17 22:11 Calcium 9.4 mg/dL (8.5-10.4) 05/01/17 22:11 Total Bilirubin 7.2 mg/dL (0.1-1.4) H 05/01/17 22:11 Conjugated Bilirubin 5.4 mg/dL (0.0-0.5) H 05/01/17 22:11 Unconjugated Bilirubin 1.8 mg/dL (0.0-1.1) H 05/01/17 22:11 AST 280 IU/L (14-46) H 05/01/17 22:11 ALT 881 IU/L (9-52) H 05/01/17 22:11 Alkaline Phosphatase 202 IU/L (38-126) H 05/01/17 22:11 Total Protein 7.6 g/dL (6.3-8.2) 05/01/17 22:11 Albumin 4.2 g/dL (3.5-5.0) 05/01/17 22:11 Lipase 71 IU/L (23-300) 05/01/17 22:11 Imaging Review: Abdominal U/S did not show biliary ductal dilation. Assessment & Plan Assessment: 41 yo F s/p recent cholecystectomy presents with abdominal pain and abnormal LFTs. Plan: 1. Abdominal pain, abnormal LFTs - LFTs consistent with cholestasis and inflammation. Differential includes choledocholithiasis and bile leak, among others. Abd U/S did not demonstrate biliary ductal dilatation. No signs of cholangitis currently noting afebrile with normal WBC. - Oxycodone, Dilaudid PRN for pain control - Ertapenem 1g qD per surgical request - Surgery consulted, appreciate assistance - GI consult for consideration of ERCP - Maintain NPO, mIVF Diet - NPO Code - Full Ppx - SCDs Dispo - Admit to observation status
[2017-05-02] MEDS: ONDANSETRON 4 MG/2 ML VIAL IVP PRN ×4 (01:24→22:37)
[2017-05-02 05:18] LABS: % IMMATURE GRANULYOCYTES 0.4 % (0.0-1.1); ABSOLUTE IMMATURE GRANULOCYTES 0.03 10^3/uL (0.00-0.10); ADD DIFF? NO; ADD MORPH? NO; ADD SCAN? NO; ATYPICAL LYMPHOCYTE FLAG 0 (0-99); FRAGMENT RBC FLAG 0 (0-99); HEMATOCRIT 38.8 % (38.0-47.0); HEMOGLOBIN 13.3 g/dL (12.6-16.3); LEFT SHIFT FLG 0 (0-99); LIPEMIA HEMOLYSIS FLAG 90 (0-99); MEAN CELL HEMOGLOBIN 31.7 pg (27.9-34.1); MEAN CELL HEMOGLOBIN CONCENTR. 34.3 g/dL (32.4-36.7); MEAN CELL VOLUME 92.4 fL (81.5-99.8); MEAN PLATELET VOLUME 11.3 fL (8.7-11.7); PLATELET CLUMPS FLAG 10 (0-99); PLATELET COUNT 179 10^3/uL (150-400); RED CELL DISTRIBUTION WIDTH 13.8 % (11.5-15.2)
[2017-05-02 05:31] LABS: ALANINE AMINOTRANSFERASE 710 IU/L (9-52); ALBUMIN 3.3 g/dL (3.5-5.0); ALKALINE PHOSPHATASE 146 IU/L (38-126); ANION GAP 12 mEq/L (8-16); ASPARTATE AMINOTRANSFERASE 233 IU/L (14-46); BILIRUBIN,TOTAL 5.8 mg/dL (0.1-1.4); CALCIUM 8.2 mg/dL (8.5-10.4); CARBON DIOXIDE 23 mEq/l (22-31); CHLORIDE 106 mEq/L (97-110); CREATININE 0.6 mg/dL (0.6-1.0); GLOMERULAR FILTRATION RATE > 60; GLUCOSE 125 mg/dL (70-100); POTASSIUM 3.7 mEq/L (3.5-5.2); SODIUM 141 mEq/L (134-144); TOTAL PROTEIN 5.9 g/dL (6.3-8.2)
[2017-05-02 05:37] LABS: BILIRUBIN-CONJUGATED 4.8 mg/dL (0.0-0.5)
[2017-05-02] MEDS: HYDROmorphone HCL/NS/PF 0.4 MG/2 ML SYR IVP PRN (06:21)
[2017-05-02] MEDS: D5W 1/2 NS W/ 20 KCl/L 1,000 ML IV SCH ×2 (06:23→16:42)
--- NOTE | 2017-05-02 11:07 | ASMTCASEMG ---
Living Arrangements What is your living Answers: With Spouse arrangement? Who do you live with? Type Of Residence What kind of residence do Answers: House you live in? Discharge Plan Comments Coordination Status Comments Notes: Pt is a 41 y/o female admitted for abdominal pain. Pt was recently at [facility] on 04/28 for acute cholecystitis. Salena from [employer] in to see pt. Salena help pt apply for emergency Medicaid to cover the cost for this hospitalization. No therapies ordered at this time. Anticipates that pt will d/c independent w/ supportive . CM available for d/c needs. Date Signed: 05/02/2017 11:06 AM Electronically Signed By:MIGNON Lux
[2017-05-02] MEDS ORDERED: GADOBUTROL 10 ML VIAL IVP ONE (11:24)
[2017-05-02] MEDS ORDERED: CALCIUM CARBONATE 500 MG CHEWABLE TAB PO PRN (12:59)
--- NOTE | 2017-05-02 14:28 | HOSPPROG ---
Hospitalist Progress Note Assessment/Plan: 41 yo F s/p recent cholecystectomy presents with abdominal pain and abnormal LFTs. Plan: 1. Abdominal pain, abnormal LFTs - LFTs consistent with cholestasis and inflammation. Abd U/S did not demonstrate biliary ductal dilatation. No signs of cholangitis currently noting afebrile with normal WBC. HIDA MRCP Reviewed with Dr. Parsons and Dr. Marrufo - Oxycodone, Dilaudid PRN for pain control - Ertapenem 1g qD per surgical request - Surgery consulted, appreciate assistance - GI consult for consideration of ERCP - Maintain NPO, mIVF Diet - NPO Code - Full Ppx - SCDs Dispo - Admit to observation status Subjective: Still having abdominal pain with nausea. Objective: Vital Signs Temp Pulse Resp BP Pulse Ox 36.9 C 50 L 18 113/70 95 05/02/17 07:49 05/02/17 07:49 05/02/17 07:49 05/02/17 07:49 05/02/17 07:49 Laboratory Results 05/02/17 04:43 05/02/17 04:43 - Physical Exam Constitutional: obese, uncomfortable Eyes: PERRL, anicteric sclera Ears, Nose, Mouth, Throat: moist mucous membranes, hearing normal Cardiovascular: No JVD, No edema Respiratory: no respiratory distress, reduced air movement Gastrointestinal: tenderness, No ascites Skin: warm, normal color Musculoskeletal: full muscle strength Neurologic: AAOx3 Psychiatric: not anxious, not encephalopathic ICD10 Worksheet Patient Problems: Problems Problem Status Onset Acute cholecystitis Acute Status post cholecystectomy Acute Elevated liver enzymes Acute Abdominal pain Acute
[2017-05-02] MEDS: ACETAMINOPHEN 325 MG TAB PO PRN ×2 (14:49→22:36)
[2017-05-02] MEDS: ERTAPENEM 1 GM in NS 100 ML IV SCH (20:37)
--- NOTE | 2017-05-02 20:38 | GCON ---
[f rep st] CONSULTATION REFERRING PHYSICIAN: Yahaira Bundy COSTUME DIRECTOR Dear Yahaira, Thank you very kindly for asking me to evaluate this patient for abdominal pain and abnormal liver te sts. She presented to the hospital yesterday with pretty significant upper abdominal pain after jason ng undergone a laparoscopic cholecystectomy on April 28. At the time of her initial presentation on April 28, her total bilirubin was 1.1 with a conjugate of 0.6. Her AST was 300, and her ALT wa s 185. On admission to the hospital yesterday, her total bilirubin was 7.2 with a conjugated compone nt of 5.4, and an AST of 280, and an ALT of 881. Her alkaline phosphatase was also elevated at 200. Her liver tests interestingly are improved spontaneously today, and of note her abdominal pain has a lso resolved. She has gone for imaging, including an MRCP and a biliary HIDA scan this morning. I h ave not seen those results. The patient denies any fever, chills, or vomiting, but has been a bit nauseated. The abdominal pain was upper and in the right side, and radiated into her back. It was a rather abrupt onset of pain an d had been pretty severe, but abated yesterday. I am asked to assist with further evaluation and man agement. PAST MEDICAL HISTORY: Significant for cholecystitis due to cholelithiasis. PAST SURGICAL HISTORY: and for a laparoscopic cholecystectomy. FAMILY HISTORY: Negative for liver disease. Her brother has had gallstones. SOCIAL HISTORY: No tobacco. No alcohol. REVIEW OF SYSTEMS: CONSTITUTIONAL: Denies fever, chills, or night sweats. HEENT: She notes sclera l icterus, and her family says her face looks yellow to them. Denies any difficulty with swallowing. No sore throat. No rhinorrhea. No ear pain. No headache. PULMONARY: No cough, shortness of gina ath. CARDIOVASCULAR: No chest pain or palpitations. GI: No diarrhea. No constipation. No melena . No hematochezia. Her abdominal pain was predominantly upper and central belly, and radiated into the back, and has currently resolved. There has been nausea with no vomiting. No heartburn. No dys phagia. RHEUMATOLOGIC: No joint pain or swelling. DERMATOLOGIC: No pruritus or rash. She has not ed the jaundice. NEURO: Denies paresthesias, focal motor weakness or falls. GENITOURINARY: No: N o flank pain, dysuria or hematuria. PHYSICAL EXAM: VITAL SIGNS: Blood pressure 113/70, with a mean arterial pressure of 84, pulse has b een between 50 and 60, respirations are 18, oxygenation is 95% on 2 L nasal cannula, temperature 36.9 . GENERAL: No acute distress. HEENT: Scleral icterus. Mild facial jaundice. NECK: Supple. No jugular venous distention, lymphadenopathy, or carotid bruit. PULMONARY: Clear to auscultation bila terally. CARDIOVASCULAR: Regular rate and rhythm without murmur, rub, or gallop. ABDOMEN: Slightl y distended and a bit tympanic, but soft and compressible, obese. Laparoscopic incisions look clean and without drainage. Abdomen is slightly tender, but no rebound or guarding. Bowel sounds are hypoa ctive. MUSCULOSKELETAL: No joint deformity, swelling, or warmth. DERMATOLOGIC: Jaundice, but no r adamaris. NEUROLOGIC: Alert to person, place, and time. Cranial nerves 2-12 are normal. Motor is nonfo caroline. LABORATORY DATA: Database includes white blood count of 8.1, hematocrit 38.8, platelets are 179. Ch emistry: Sodium 141, potassium 3.7, chloride 106, bicarbonate 23, BUN is 9 creatinine 0.6. AST is 2 33, ALT is 710, total bilirubin is 5.8 with a conjugated of 4.8, alkaline phosphatase is 146, beta HC G is negative, lipase is 71. Previous LFTs yesterday were noted in the HPI. Imaging includes an abdominal ultrasound on May 01, 2017. This shows an absent gallbladder. Mu rphy sign is negative. The common bile duct is normal in caliber without ductal dilatation. The abraham creas is obscured by bowel gas. No focal liver lesion, but there is increased hepatic echogenicity. Abdominal ultrasound April 28, 2017 showed cholelithiasis with multiple gallstones up to 2 cm and gallbladder wall thickening consistent with an acute cholecystitis. The common bile duct was dilated at 8 mm at presentation. IMPRESSION: 1. Abdominal pain consistent with biliary pain. 2. Nausea. 3. Elevated liver tests. Both transaminitis and cholestasis. Most likely due to obstructive physio logy. 4. Recent cholelithiasis with cholecystitis and resection. RECOMMENDATIONS: 1. I will review her HIDA scan to see if there is a biliary leak and also to assess whether there is radiotracer that makes it into the small bowel to help with obstructive physiology. 2. MRCP will be reviewed to see if there is evidence of choledochal lithiasis. 3. Further decisions can be made based on the findings. 4. N.p.o. 5. Prophylactic antibiotics are recommended in case there is obstruction or biliary leak. 6. I have discussed the care plan with the patient's daughter, who is acting as construction trades teacher, as the p atient is only Estonian speaking. They are aware of the plan. Further recommendations to follow my r eview of imaging and her clinical progress. 7. I will discuss the case with Dr. Marrufo, her surgeon. /[id number]/MODL
--- NOTE | 2017-05-02 23:39 | GCON ---
[f rep st] CONSULTATION DATE OF CONSULTATION: 05/02/2017 CHIEF COMPLAINT: Abdominal pain. HISTORY OF PRESENT ILLNESS: This is a 41-year-old female, well known to me as I took her to the oper ating room Aldo evening for laparoscopic cholecystectomy with cholangiogram, for what at that time, appeared to be acute cholecystitis. During the surgery, I did perform a cholangiogram, which showed brisk spillage of contrast into the duodenum and no skylar filling defects. Patient subsequently sta yed an additional day in-house for nausea and was discharged home uneventfully on Monday. She states since that time, she felt well; however, last evening began to have right upper quadrant pain consis tent with that preoperatively and decided to present to the emergency department. In the emergency d epartment, she had elevated liver enzymes, including her bilirubin and AST/ALT. Ultrasound was fairl y unremarkable showing normal duct architecture and no free fluid. Subsequently on my evaluation, th e patient states that she feels better, that the pain has resolved, and that she no longer has nausea . She did state that the pain was right upper quadrant in nature without radiation, and that it was 8/10 in intensity, which is now resolved. She is comfortable and awaiting her next studies, which sh ould be performed later today. PAST MEDICAL HISTORY: Cholecystitis. Takes no other medications. PAST SURGICAL HISTORY: and laparoscopic cholecystectomy performed just this last Monday by me. FAMILY HISTORY: Noncontributory. SOCIAL HISTORY: Denies illicit drug use. Never smoked. REVIEW OF SYSTEMS: A full 10 point was performed, and unless stated above, is otherwise negative. PHYSICAL EXAMINATION: VITAL SIGNS: Temperature 36.9, heart rate 50, blood pressure 113/70, and she is 95% on 2 L nasal cannula. CONSTITUTIONAL: She is in no apparent distress. She appears comfortab le. EYES: Her pupils are equal, round, and reactive to light and accommodation. She does have scle ral icterus, and her extraocular movements are intact. EARS, NOSE, MOUTH AND THROAT: She has moist mucous membranes. Her hearing is normal. Her mouth has no mucosal ulcers. CV: She has a regular r ate and rhythm without any murmurs. RESPIRATORY: She has no respiratory distress. No rales or rhon chi. GI: She has normoactive bowel sounds. Her incision sites are healing appropriately. She is s oft, nondistended, nontender. SKIN: Warm. Normal color. No rashes or abrasions. MUSCULOSKELETAL: Full muscle strength. No tenderness. Normal joint range of motion. NEUROLOGIC: She is alert and oriented x3. Her cranial nerves 2-12 are intact. She has no weakness or numbness. PSYCH: She is interacting appropriately. She is not anxious. LYMPH/HEME/IMMUNOLOGIC: She has no cervical or groi n lymphadenopathy. LABORATORY DATA: White count normal at 8. H and H stable at 13 and 38. LFTs elevated with a total bilirubin of 5.8, conjugated fraction 4.8. AST and ALT 233 and 710, respectively. IMAGING DATA: Ultrasound shows no dilated ducts. No free fluid. HIDA scan and MRCP pending. ASSESSMENT AND PLAN: A 41-year-old female with postoperative what appears to be obstructive jaundice . It is interesting seeing that I shot a cholangiogram intraoperatively and found no filling defects and correctly identified the cystic duct. Will obtain a HIDA scan to look for a bile leak. In delfina tion, will also get an MRCP and GI consultation as this likely represents a retained stone, but want to rule out any other operative complications. Will continue to follow with you. /[id number]/MODL
[2017-05-03 05:36] LABS: ALBUMIN 3.2 g/dL (3.5-5.0); BILIRUBIN,TOTAL 5.7 mg/dL (0.1-1.4); BILIRUBIN-CONJUGATED 4.6 mg/dL (0.0-0.5); BILIRUBIN-UNCONJUGATED 1.1 mg/dL (0.0-1.1); TOTAL PROTEIN 6.2 g/dL (6.3-8.2)
[2017-05-03 05:48] LABS: INR 1.05 (0.83-1.16); PROTIME(PATIENT) 13.6 SEC (12.0-15.0)
[2017-05-03] MEDS ORDERED: GLUCAGON HCL 1 MG VIAL ONE (08:18)
[2017-05-03] MEDS ORDERED: IOTHALAMATE MEG (CONRAY) 50 ML VIAL IV ONE (08:21)
[2017-05-03] MEDS ORDERED: MIDAZOLAM 2 MG/2 ML VIAL IVP ONE (08:24)
--- NOTE | 2017-05-03 08:24 | PDANEPAE ---
ANE History of Present Illness 41 yo for ercp ANE Past Medical History - Cardiovascular History Hx Hypertension: No Hx Arrhythmias: No Hx Chest Pain: No Hx Coronary Artery / Peripheral Vascular Disease: No Hx CHF / Valvular Disease: No Hx Palpitations: No - Pulmonary History Hx Oxygen in Use at Home: No Hx Sleep Apnea: No Sleep Apnea Screening Result - Last Documented: Negative - Endocrine History Hx Diabetes: No - Chronic Pain History Chronic Pain: No ANE Review of Systems Review of Systems: - Exercise capacity METS (RN): 4 METS ANE Patient History - Allergies Allergies/Adverse Reactions: No Known Allergies Allergy (Verified 05/01/17 21:50) - Home Medications Home medications: home medication list seen and reviewed Home Medications: Calcium Carbonate [Tums 500MG (*)] 500 mg PO DAILY PRN 05/02/17 [Last Taken Unknown] - NPO status NPO Status: no food or drink >8 hours NPO Since - Liquids (Date): 05/02/17 NPO Since - Liquids (Time): 00:00 NPO Since - Solids (Date): 05/02/17 NPO Since - Solids (Time): 00:00 - Anes Hx Anes Hx: no prior problems - Smoking Hx Smoking Status: Never smoked ANE Labs/Vital Signs - Labs Result Diagrams: 05/02/17 04:43 05/02/17 04:43 - Vital Signs Blood Pressure: 128/72 Heart Rate: 60 Respiratory Rate: 16 O2 Sat (%): 90 Height: 5 ft 5 in Weight: 94 kg ANE Physical Exam - Airway Neck exam: FROM Mallampati Score: Class 2 - Pulmonary Pulmonary: no respiratory distress - Cardiovascular Cardiovascular: regular rate and rhythym - ASA Status ASA Status: II ANE Anesthesia Plan Anesthesia Plan: general endotracheal anesthesia
[2017-05-03] MEDS ORDERED: fentaNYL 100 MCG/2 ML INJ ONE ×2 (08:33→10:54)
[2017-05-03] MEDS ORDERED: PROPOFOL/EMULSION 500 MG/50 ML BOTTLE IV ONE (08:33)
[2017-05-03] MEDS ORDERED: REMIFENTANIL HCL 1 MG VIAL ONE (08:33)
[2017-05-03] MEDS ORDERED: ROCURONIUM 50 MG/5 ML VIAL ONE (08:35)
[2017-05-03] MEDS ORDERED: INDOMETHACIN 50 MG SUPP PR ONE (08:38)
[2017-05-03] MEDS ORDERED: LR 1,000 ML IV ONE (08:46)
[2017-05-03] MEDS ORDERED: LIDOCAINE 1% 2 ML INJ ID PRN (08:46)
--- NOTE | 2017-05-03 09:48 | SOAPPROG ---
SOAP Progress Note Assessment/Plan: Assessment/Plan: 41 Y F lap corey last Mon night, IOC ok at surgery, readmitted with retained stone. S/p ERCP. Sludge found per RN. Repeat labs in am. Dispo: likely tomorrow if does well. S: Seen just after ERCP while back on floor. Very sleepy, No complaints. Many family members present, no questions. O: somnolent but arousable no wob abd soft, appropriately tender 05/03/17 11:49 Objective: Vital Signs Temp Pulse Resp BP Pulse Ox 36.8 C 60 16 128/72 H 90 L 05/03/17 04:00 05/03/17 08:23 05/03/17 08:23 05/03/17 08:23 05/03/17 08:23 Laboratory Results 05/02/17 04:43 05/02/17 04:43 PT 13.6 SEC (12.0-15.0) 05/03/17 04:36 INR 1.05 (0.83-1.16) 05/03/17 04:36 ICD10 Worksheet Patient Problems: Problems Problem Status Onset Abdominal pain Acute Elevated liver enzymes Acute Status post cholecystectomy Acute Acute cholecystitis Acute
--- NOTE | 2017-05-03 09:55 | GIREPORT ---
Formerly [facility] Surgical Services - Endoscopy Department Patient Name: Mary Cadet Procedure Date: 05/03/2017 8:47 AM Patient Type: Inpatient Attending MD/ ER Physician: Freddy Parsons MD Procedure: ERCP Indications: Abdominal pain of suspected biliary origin, Bile duct stone(s), For the rapy of bile duct stone(s), Jaundice, Elevated liver enzymes Providers: Freddy Parsons MD Medicines: General Anesthesia, Indomethacin 100 mg IN, Invanz 1 g IV Complications: No immediate complications. Description of Procedure: After obtaining informed consent, the scope was passed under direct vis ion. Throughout the procedure, the patient's blood pressure, pulse, and oxyg en saturations were monitored continuously. The Duodenoscope was introduce d through the mouth, and advanced to the duodenum and used to inject cont rast into the bile duct. The ERCP was accomplished without difficulty. The patient tolerated the procedure well. Findings: A institutional nutrition consultant film of the abdomen was obtained. Surgical clips, consistent wi th a previous cholecystectomy, were seen in the area of the right upper quad rant of the abdomen. The esophagus was successfully intubated under direct vision. The scope was advanced to a normal major papilla in the descend ing duodenum without detailed examination of the pharynx, larynx and associ ated structures, and upper GI tract. The upper GI tract was grossly normal. The bile duct was deeply cannulated with the short-nosed traction sphincterotome. Contrast was injected. I personally interpreted the fernanda e duct images. There was brisk flow of contrast through the ducts. Image quality was excellent. Contrast extended to the entire biliary tree. Th e middle third of the main bile duct and upper third of the main bile antonio t were mildly dilated. The largest diameter was 9 mm. The biliary tree wa s otherwise normal. A 0.035 inch straight standard wire was passed into t he biliary tree. A 9 mm biliary sphincterotomy was made with a monofilamen t traction (standard) sphincterotome using ERBE electrocautery. There was no post-sphincterotomy bleeding. To discover objects, the biliary tree was swept with a 12 mm balloon starting at the bifurcation. Nothing was fou nd. Estimated Blood Loss: Estimated blood loss: none. Post Op Diagnosis: - The upper third of the main bile duct and middle third of the main bi le duct were mildly dilated. - Gallbladder absent. - No biliary leak. - A biliary sphincterotomy was performed. - The biliary tree was swept and nothing was found. Recommendation: - Return patient to hospital [facility] for ongoing care. - Clear liquid diet. - Check liver enzymes (AST, ALT, alkaline phosphatase, bilirubin) in th e morning. - Thank you for allowing me to be involved in the care of your patient. Attending Participation: I personally performed the entire procedure without the assistance of a fellow, resident or surg ical conventions assistant. Freddy Parsons MD Freddy Parsons MD 05/03/2017 9:54:15 AM This report has been signed electronicallyDavid MD Jaqueline Number of Addenda: 0 Note Initiated On: 05/03/2017 8:47 AM Total Procedure Duration Time 0 hours 38 minutes 49 seconds [email or web address]
[2017-05-03] MEDS ORDERED: ALBUTEROL 3 ML DEYVIAL IH PRN (09:56)
[2017-05-03] MEDS ORDERED: NALOXONE HCL 0.4 MG/ML INJ IVP PRN (09:56)
[2017-05-03] MEDS ORDERED: ONDANSETRON 4 MG/2 ML VIAL IVP PRN (09:56)
--- NOTE | 2017-05-03 09:57 | POSTANESTH ---
Post Anesthetic Evaluation Cardiovascular Status: Normal, Stable Respiratory Status: Similar to Pre-op Cond. Level of Consciousness/Mental Status: Can Participate in Eval Pain Control: Adequate, Prn Tx Ordered Nausea/Vomiting Control: Adequate, Prn Tx Ordered Complications Possibly Related to Anesthesia: None Noted
[2017-05-03] MEDS: fentaNYL 100 MCG/2 ML INJ IVP PRN ×2 (10:54→11:02)
[2017-05-03] MEDS: ERTAPENEM 1 GM in NS 100 ML IV SCH (11:38)
--- NOTE | 2017-05-03 12:43 | HOSPPROG ---
Hospitalist Progress Note Assessment/Plan: 41 yo F s/p recent cholecystectomy presents with abdominal pain and abnormal LFTs. D/W Dr Parsons. Plan: 1. Abdominal pain, abnormal LFTs - LFTs consistent with cholestasis and inflammation. Abd U/S did not demonstrate biliary ductal dilatation. No signs of cholangitis currently noting afebrile with normal WBC. HIDA see report MRCP possible stone ERCP today with Gatof, see report Clear liquids no pain currently 2. Dispo change to inpt status unable to tolerate PO cont supportive care possible DC in am Diet - clear Code - Full Ppx - SCDs Subjective: Tired, post procedure. No pain. Objective: Vital Signs Temp Pulse Resp BP Pulse Ox 36.8 C 61 16 128/72 H 93 05/03/17 11:28 05/03/17 11:28 05/03/17 11:28 05/03/17 11:28 05/03/17 11:28 Laboratory Results 05/02/17 04:43 05/02/17 04:43 05/02/17 05/03/17 05/04/17 05:59 05:59 05:59 Intake Total 850 Balance 850 PT 13.6 SEC (12.0-15.0) 05/03/17 04:36 INR 1.05 (0.83-1.16) 05/03/17 04:36 - Physical Exam Constitutional: appears nourished, obese, uncomfortable Eyes: PERRL, anicteric sclera, EOMI Ears, Nose, Mouth, Throat: moist mucous membranes, hearing normal, ears appear normal Cardiovascular: regular rate and rhythym, No JVD, No edema Respiratory: no respiratory distress, no rales or rhonchi, reduced air movement Gastrointestinal: tenderness, No ascites, No guarding Skin: warm, normal color, No erythema Musculoskeletal: normal joint ROM, no joint effusions, generalized weakness Neurologic: AAOx3 Psychiatric: not anxious, not encephalopathic, thought process linear ICD10 Worksheet Patient Problems: Problems Problem Status Onset Acute cholecystitis Acute Status post cholecystectomy Acute Elevated liver enzymes Acute Abdominal pain Acute
--- NOTE | 2017-05-03 15:33 | PDMN ---
Medical Necessity Medical necessity: M05 abd pain undg. : PT. unable to tolerate PO, elevated LFT with further monitoring and tx needed
[2017-05-03] MEDS: ACETAMINOPHEN 325 MG TAB PO PRN (22:04)
[2017-05-04] MEDS: HYDROmorphone HCL/NS/PF 0.4 MG/2 ML SYR IVP PRN (01:58)
[2017-05-04] MEDS: ACETAMINOPHEN 325 MG TAB PO PRN (05:15)
[2017-05-04 05:22] LABS: HEMATOCRIT 36.6 % (38.0-47.0); HEMOGLOBIN 13.4 g/dL (12.6-16.3); MEAN CELL HEMOGLOBIN 33.4 pg (27.9-34.1); MEAN CELL HEMOGLOBIN CONCENTR. 36.6 g/dL (32.4-36.7); MEAN CELL VOLUME 91.3 fL (81.5-99.8); RED BLOOD CELL COUNT 4.01 10^6/uL (4.18-5.33); RED CELL DISTRIBUTION WIDTH 14.2 % (11.5-15.2)
[2017-05-04 05:30] LABS: ALBUMIN 3.3 g/dL (3.5-5.0); BILIRUBIN,TOTAL 5.6 mg/dL (0.1-1.4); BILIRUBIN-CONJUGATED 4.2 mg/dL (0.0-0.5); BILIRUBIN-UNCONJUGATED 1.4 mg/dL (0.0-1.1)
[2017-05-04] MEDS: ERTAPENEM 1 GM in NS 100 ML IV SCH (08:40)
--- NOTE | 2017-05-04 09:06 | SOAPPROG ---
SOAP Progress Note Assessment/Plan: Assessment: 1. Elevated LFTs Plan: 1. I do not feel these are related to biliary obstruction as no abdominal pain and negative ERC. Most likely hepatocellular injury of some type. 2. Stop Abx as may be contributing to liver test abnormalities 3. Monitor LFTs 4. ADAT to low fat 5. Send additional serologies for autoimmune hepatitis 6. Will follow. 05/04/17 09:02 Subjective: CC: ABD pain. No pain. No fever. Neg ERC yesterday for obstruction. Objective: Vital Signs Temp Pulse Resp BP Pulse Ox 36.9 C 55 L 20 120/67 18 L 05/04/17 07:39 05/04/17 07:39 05/04/17 07:39 05/04/17 07:39 05/04/17 07:39 Laboratory Results 05/04/17 04:58 05/03/17 05/04/17 05/05/17 05:59 05:59 05:59 Intake Total 680 Output Total 500 Balance 180 PT 13.6 SEC (12.0-15.0) 05/03/17 04:36 INR 1.05 (0.83-1.16) 05/03/17 04:36 Physical Exam - Physical Exam General Appearance: WD/WN, alert, no apparent distress EENT: pharynx normal, scleral icterus (R), scleral icterus (L) Neck: supple Respiratory: lungs clear Cardiac/Chest: regular rate, rhythm, No tachycardia, No systolic murmur Abdomen: non-tender, soft, other (Laparoscopic sites c/d/i), No distended, No guarding, No rebound, No ascites Skin: jaundice ICD10 Worksheet Patient Problems: Problems Problem Status Onset Abdominal pain Acute Elevated liver enzymes Acute Status post cholecystectomy Acute Acute cholecystitis Acute
--- NOTE | 2017-05-04 13:02 | HOSPPROG ---
Hospitalist Progress Note Assessment/Plan: 41 yo F s/p recent cholecystectomy presents with abdominal pain and abnormal LFTs. D/W Dr Parsons. Today is my 1st encounter with the patient. Chart reviewed. * abdominal pain with the elevated LFTs -ERCP did not show any type of obstruction -Dr. Parsons to send labs to rule out autoimmune hepatitis -also antibiotic stopped because they could also be causing elevated levels -eating and drinking well today having no further pain * obesity with a BMI of 34 * plan. Will recheck labs in the morning. Will continue current treatment. I met with the patient via the quality control technician. She will likely be discharged tomorrow morning Subjective: Mary is feeling well/ has no complaints. Objective: Vital Signs Temp Pulse Resp BP Pulse Ox 36.8 C 55 L 18 113/56 L 93 05/04/17 11:30 05/04/17 11:30 05/04/17 11:30 05/04/17 11:30 05/04/17 11:30 Laboratory Results 05/04/17 04:58 05/03/17 05/04/17 05/05/17 05:59 05:59 05:59 Intake Total 680 Output Total 500 Balance 180 PT 13.6 SEC (12.0-15.0) 05/03/17 04:36 INR 1.05 (0.83-1.16) 05/03/17 04:36 - Physical Exam Constitutional: no apparent distress, not in pain, obese Eyes: PERRL Ears, Nose, Mouth, Throat: hearing normal Cardiovascular: regular rate and rhythym Respiratory: no respiratory distress Gastrointestinal: normoactive bowel sounds Skin: warm Musculoskeletal: full muscle strength Neurologic: AAOx3 Psychiatric: interacting appropriately ICD10 Worksheet Patient Problems: Problems Problem Status Onset Abdominal pain Acute Elevated liver enzymes Acute Status post cholecystectomy Acute Acute cholecystitis Acute
--- NOTE | 2017-05-04 13:33 | SOAPPROG ---
CLARA Progress Note Assessment/Plan: Assessment/Plan: 41yo F s/p lap corey, re-admitted for jaundice - ERCP reviewed yesterday with Gatof, no obstruction. - LFTs persistently high, evaluating poss primary hepatic source but duct is wide open and should drain appropriately with sphincterotomy - Abdomen is soft and NTTP. She is eating without issues - Keep in house while we pursue other etiologies for elevated LFTs, but not obstructive 05/04/17 13:31 Subjective: Feels much better, has been eating and walking. Objective: Vital Signs Temp Pulse Resp BP Pulse Ox 36.8 C 55 L 18 113/56 L 93 05/04/17 11:30 05/04/17 11:30 05/04/17 11:30 05/04/17 11:30 05/04/17 11:30 Laboratory Results 05/04/17 04:58 05/03/17 05/04/17 05/05/17 05:59 05:59 05:59 Intake Total 680 Output Total 500 Balance 180 PT 13.6 SEC (12.0-15.0) 05/03/17 04:36 INR 1.05 (0.83-1.16) 05/03/17 04:36 ICD10 Worksheet Patient Problems: Problems Problem Status Onset Abdominal pain Acute Elevated liver enzymes Acute Status post cholecystectomy Acute Acute cholecystitis Acute
[2017-05-05 04:32] VITALS: TEMP 98.2
[2017-05-05 05:19] LABS: INR 0.94 (0.83-1.16); PROTIME(PATIENT) 12.5 SEC (12.0-15.0)
[2017-05-05 05:28] LABS: ALBUMIN 3.6 g/dL (3.5-5.0); BILIRUBIN-CONJUGATED 2.7 mg/dL (0.0-0.5); BILIRUBIN-UNCONJUGATED 1.3 mg/dL (0.0-1.1); TOTAL PROTEIN 6.4 g/dL (6.3-8.2)
[2017-05-05 08:24] VITALS: BP 128/59; PULSE 58; RESP 18; O2SAT 92
--- NOTE | 2017-05-05 09:50 | HOSPPROG ---
Hospitalist Progress Note Assessment/Plan: 41 yo F s/p recent cholecystectomy presents with abdominal pain and abnormal LFTs. D/W Dr Parsons. Today is my 1st encounter with the patient. Chart reviewed. * abdominal pain with the elevated LFTs -ERCP did not show any type of obstruction -Dr. Parsons sent labs to rule out autoimmune hepatitis -also antibiotic stopped because they could also be causing elevated levels -eating and drinking well today having no further pain * obesity with a BMI of 34 * plan.dc home/ spoke w Dr Parsons and his office will f/u with her Subjective: Mary feels well, eating and drinking/has no pain (met w her w an admissions nurse) Objective: Vital Signs Temp Pulse Resp BP Pulse Ox 36.8 C 58 L 18 128/59 H 92 05/05/17 08:23 05/05/17 08:23 05/05/17 08:23 05/05/17 08:23 05/05/17 08:23 Laboratory Results 05/04/17 04:58 05/04/17 05/05/17 05/06/17 05:59 05:59 05:59 Intake Total 680 1548 Output Total 500 Balance 180 1548 PT 12.5 SEC (12.0-15.0) 05/05/17 04:48 INR 0.94 (0.83-1.16) 05/05/17 04:48 - Physical Exam Constitutional: no apparent distress, obese Eyes: PERRL Ears, Nose, Mouth, Throat: hearing normal Respiratory: no respiratory distress Skin: warm Musculoskeletal: full muscle strength Neurologic: AAOx3 Psychiatric: interacting appropriately ICD10 Worksheet Patient Problems: Problems Problem Status Onset Abdominal pain Acute Elevated liver enzymes Acute Status post cholecystectomy Acute Acute cholecystitis Acute
--- NOTE | 2017-05-05 16:13 | GDS ---
[f rep st] DISCHARGE SUMMARY DISCHARGE DIAGNOSES: 1. Abnormal liver function test. 2. Obesity with body mass index of 34. 3. Abdominal pain. CONSULTATIONS: 1. Dr. Freddy Parsons.. 2. Dr. Kenny Marrufo. HISTORY: Briefly, Mary is a 41-year-old female who is status post a laparoscopic cholecystectomy on April 28. On admission, it was noted that she had elevated liver function tests. [facility] because she was starting to have abdominal pain, and it was noted that her li ivania tests were up significantly after undergoing laparoscopic cholecystectomy. Subsequently, she had an MRI of the abdomen performed that showed choledocholithiasis with 2-3 tiny gallstones, and she ellis d some mild biliary dilation. There was no evidence of a biliary leak, biloma, or surgical clip on t he duct. She had no hepatic steatosis. After this, an ERCP was performed that showed no biliary jalyn k. She had a biliary sphincterectomy performed. No stone was noted. Her liver enzymes have continu ed to be elevated and have slightly trended down. She is being further evaluated for autoimmune hepa titis versus reaction to antibiotics. She had been on Invanz. She will get close followup with Dr. Parsons and Dr. Marrufo within the next 1-2 weeks. HOSPITAL COURSE PER PROBLEM: 1. Abnormal liver function tests: At this time, the etiology is unclear. She has multiple tests pe nding. The ERCP did not show any type of obstruction. Antibiotics were discontinued. She is eating and drinking well. She is having no further abdominal pain. 2. Obesity. She has a BMI of 34. PENDING LABORATORIES: Multiple pending labs. CONDITION: Stable. VITAL SIGNS: Blood pressure 128/59, heart rate is 58, respiratory rate is 18, O2 sat in room air 92% , temperature 36.8 Celsius. MEDICATIONS AT DISCHARGE: Please see the EMR. DISCHARGE INSTRUCTIONS: 1. Follow up with Dr. Parsons on May 08. He is going to have liver function tests checked at doctors hospital time. 2. Follow up with Dr. Kenny Marrufo the week after [place]. 3. If she develops fever, chills, or worsening abdominal pain, return to the ER. Greater than 30 minutes discharging and coordinating patient's care. /[id number]/[id number]
[2017-05-05 18:02] LABS: ALPHA-1-ANTITRYPSIN SERUM 158 mg/dL (100 - 190)
[2017-05-06 13:51] LABS: SMOOTH MUSCLE ANTIBODIES SERUM Negative (Negative)
== END 2017-05-05 11:42 | disposition home or self-care (01) | DRG 443 ==
LOC: F3E 05-02 01:15 → OBSVTOIN 05-03 12:38
PROVIDERS: ADMIT Student in an Organized Health Care Education/Training Program; ATTEND Student in an Organized Health Care Education/Training Program
PROC: 0F798ZZ Dilation of Common Bile Duct, Via Natural or Artificial Opening Endoscopic (ICD-10-PCS; principal; 2017-05-03 08:30)
DX: R94.5 Abnormal results of liver function studies (principal); E66.9 Obesity, unspecified; Z68.34 Body mass index [BMI] 34.0-34.9, adult; Z98.890 Other specified postprocedural states
CPT/HCPCS: 82103-90; 86255-90; 96365; A9537; A9585; G0378; J1170; J1335; J1610; J2250; J2405; J2704; J3010; Q9961